=== PATIENT | female | born 1965 | race Caucasian/White ===

== ENCOUNTER 2024-01-27 07:22 | Day surgery (SDC) | payer OTHER ==
[~2024-01-27] VITALS: Ht 162.6 cm; Wt 80.5 kg
[~2024-01-27 07:22] MED LIST: CLARITIN-D 121 EACH PO; IBLOOD GLUCOSE TEST STRIP 1 EA TEST VI PRN; LACTATED RINGER'S 1,000 ML IV SCH; LIDOCAINE HCL 1% 5 ML SDV INJ ONE; MIDAZOLAM HCL 5 MG/5 ML VIAL IV PRN; PROTONIX40 MG PO; VITAMIN D325 MC4 PO; fentaNYL citrate 100 MCG/2 ML VIAL IV PRN
[2024-01-27 07:38] VITALS: BP 120/59
--- NOTE | 2024-01-27 07:53 | NUR ---
PT NOT AVAILABLE FOR VISIT. PROVIDED PRAYER.
[2024-01-27] MEDS ORDERED: fentaNYL citrate 100 MCG/2 ML VIAL ONE ×2 (08:43→09:04)
[2024-01-27] MEDS ORDERED: MIDAZOLAM HCL 5 MG/5 ML VIAL ONE ×2 (08:43→09:04)
--- NOTE | 2024-01-27 09:24 | NUR ---
01/27/24 0924 Juliana Brennan 0904-PATIENT ARRIVED TO PACU ON RA RR EVEN. PATIETN LAYING LEFT LATERAL REACTIVE TO VERBAL STIMULI OPENING EYES REMAINS VERY DROWSY ORIENTED TO PACU. DOZES BACK TO SLEEP. ABDOMEN SOFT. IVF INFUSING.
[2024-01-27 10:09] VITALS: BP 110/87
--- NOTE | 2024-01-28 07:34 | OR ---
[facility] [address], [place] [address] Signed DATE OF OPERATION: 01/27/2024 SURGEON: Edson Beard MD PREOPERATIVE DIAGNOSIS: Maternal grandfather with colon cancer and of his colon cancer at age 70. POSTOPERATIVE DIAGNOSIS: Minimal internal hemorrhoids. PROCEDURE: Colonoscopy without biopsy. ESTIMATED BLOOD LOSS: None. INDICATIONS: Dena is a 58-year-old female, asked to see me for initial colonoscopy. She helped her through his colonoscopy in [place], [place] just a couple of years ago. She recalls the one gallon jug. She told me she has no lower GI complaints. She is very clear that her paternal grandmother had primary liver cancer. Her maternal grandmother had esophageal cancer. Her maternal grandfather of colon cancer at the age of 70. She said her dad actually from prostate cancer. She has no lower GI complaints. She said she is very anxious about the whole thing. In the office, I gave her a pamphlet on colonoscopy. We reviewed the nature of the test. There is risk including, but not limited to gas bloating, crampy abdominal pain, bleeding, perforation requiring surgery, and missed diagnosis. We also reviewed the written instructions for a bowel prep line by line. She also understands the need for IV conscious sedation. She understands an adult person has to take her home afterwards. She had expressed understanding and wished to proceed. PROCEDURE IN DETAIL: Dena was taken into our endoscopy suite and placed in the left lateral decubitus position. She was given 9 mg of Versed and 150 mcg of fentanyl to cover the case. A digital rectal exam was performed. She had good sphincter tone and no masses. No external hemorrhoids. The adult colonoscope had been introduced and advanced quite readily up into the cecum itself. Her colon is not particularly long. Her prep was quite excellent. We could easily see the appendiceal orifice and the ileocecal valve. We took several pictures throughout as the scope was withdrawn. She had no polyps. There was no diverticulosis. Once in the rectum, the scope was retroflexed and we saw Electronically Signed By: EDSON BEARD MD 01/28/24 0734 PATIENT NAME: DENA SALVADOR OPERATIVE REPORT DATE OF : 69 REPORT #: [id number] PHYSICIAN: EDSON BEARD MD PCP: MACEY GREY MD REPORT IS CONFIDENTIAL AND NOT TO BE RELEASED WITHOUT AUTHORIZATION [address] [address] Signed just minimal internal hemorrhoid tissue. After this, the gas was suctioned out and the colonoscope removed. Dena tolerated the procedure quite well. RECOMMENDATIONS: Dena can follow up in 5 years for repeat colonoscopy given her family history of colon cancer in a maternal grandfather. MD ADRIAN Church/JOSLYNL /[id number] cc: Dr. Macey Beard MD Copies: EDSON BEARD MD ~ Electronically Signed By: EDSON BEARD MD 01/28/24 0734 PATIENT NAME: MADELEINEDENA BIRD OPERATIVE REPORT DATE OF : 69 REPORT #: [id number] PHYSICIAN: EDSON BEARD MD PCP: MACEY GREY MD REPORT IS CONFIDENTIAL AND NOT TO BE RELEASED WITHOUT AUTHORIZATION
== END 2024-01-27 10:21 | disposition home or self-care (01) ==
LOC: DS 07:22
PROVIDERS: ATTEND Colon & Rectal Surgery
PROC: 0DJD8ZZ Inspection of Lower Intestinal Tract, Via Natural or Artificial Opening Endoscopic (ICD-10-PCS; principal; 2024-01-27 08:55)
DX: Z12.11 Encounter for screening for malignant neoplasm of colon (principal); K64.8 Other hemorrhoids; E66.3 Overweight; F32.9 Major depressive disorder, single episode, unspecified; F17.200 Nicotine dependence, unspecified, uncomplicated; G62.9 Polyneuropathy, unspecified; Z80.0 Family history of malignant neoplasm of digestive organs
CPT/HCPCS: 99153; G0500; J2250; J3010